=== PATIENT | female | born 1970 | race Two or more races ===

== ENCOUNTER 2019-09-04 06:30 | Inpatient (IN) | payer OTHER ==
[2019-08-31 10:24] VITALS: BMI 40.4
[~2019-09-04 06:30] MED LIST: BUPIVACAINE HCL/PF 0.25% (2.5MG/ML) 10 ML VIAL IJ ONE
[2019-09-04] MEDS ORDERED: MIDAZOLAM HCL 2 MG/2 ML SINGLE DOSE VIAL ONE ×2 (07:09→07:20)
[2019-09-04] MEDS ORDERED: SUCCINYLCHOLINE CHLORIDE 200 MG/10 ML SYRINGE ONE (07:10)
[2019-09-04] MEDS ORDERED: ROCURONIUM BROMIDE 50 MG/5 ML SYRINGE ONE (07:10)
[2019-09-04] MEDS ORDERED: PROPOFOL 20 ML ONE (07:10)
[2019-09-04] MEDS ORDERED: LIDOCAINE HCL/PF 2% SDV 5ML VIAL ONE (07:10)
[2019-09-04] MEDS ORDERED: ROPIVACAINE HCL 0.5% 30ML VIAL ONE (07:20)
[2019-09-04] MEDS ORDERED: BUPIVACAINE HCL 0.25% 125 MG/50 ML VIAL ONE (07:22)
--- NOTE | 2019-09-04 07:40 | HP ---
Admitting History and Physical - Admission Chief Complaint: Morbid obesity History Source: Patient Limitations to Obtaining History: No Limitations - Past Medical History ...LMP: 08/24/19 ...: No - Past Surgical History Additional Past Surgical History: Clinical Rehabilitation Aide surgery Right ankle pinning? - Smoking History Smoking history: Never smoked Have you smoked in the past 12 months: No - Alcohol/Substance Use Hx Alcohol Use: Yes (socially) - Social History Usual Living Arrangement: Yes: With Spouse ADL: Independent Home Medications - Allergies Allergies/Adverse Reactions: Allergies Allergy/AdvReac Type Severity Reaction Status Date / Time No Known Drug Allergies Allergy Verified 09/04/19 06:59 - Home Medications Home Medications: Ambulatory Orders Cetirizine HCl [Zyrtec -] 10 mg PO ASDIR PRN 08/31/19 Family Medical History Family History: Denies Review of Systems - Review of Systems Constitutional: denies: Chills, Fever HENT: reports: No Symptoms Neck: reports: No Symptoms Cardiovascular: reports: No Symptoms Respiratory: reports: No Symptoms Gastrointestinal: reports: No Symptoms Neurological: reports: No Symptoms Pain Intensity: 0 Physical Examination Vital Signs: Vital Signs Temperature 97.8 F 09/04/19 07:00 Pulse Rate 90 09/04/19 07:00 Respiratory Rate 18 09/04/19 07:00 Blood Pressure 130/89 09/04/19 07:00 O2 Sat by Pulse Oximetry (%) 100 09/04/19 07:03 Constitutional: Yes: No Distress, Calm Neck: Yes: WNL Cardiovascular: Yes: Regular Rate and Rhythm Respiratory: Yes: Regular Gastrointestinal: Yes: Soft, Abdomen, Obese Neurological: Yes: Alert, Oriented Problem List - Problems (1) Morbid obesity due to excess calories Code(s): E66.01 - MORBID (SEVERE) OBESITY DUE TO EXCESS CALORIES (2) BMI 40.0-44.9, adult Code(s): Z68.41 - BODY MASS INDEX (BMI) 40.0-44.9, ADULT Assessment/Plan Laparoscopic possible open vertical sleeve gastrectomy possible liver biopsy possible upper endoscopy
[2019-09-04] MEDS ORDERED: PHENYLEPHRINE HCL 10 MG/1 ML SINGLE DOSE VIAL ONE (08:28)
[2019-09-04] MEDS ORDERED: NEOSTIGMINE METHYLSULFATE 0.5 MG/ML - 10 ML MDV ONE (09:04)
[2019-09-04] MEDS ORDERED: GLYCOPYRROLATE 0.2 MG/1 ML VIAL ONE (09:05)
[2019-09-04] MEDS ORDERED: BUPIVACAINE HCL/PF 0.25% (2.5MG/ML) 10 ML VIAL IJ ONE (09:10)
--- NOTE | 2019-09-04 09:23 | OP ---
Operative Note - Note: Operative Date: 09/04/19 Pre-Operative Diagnosis: Morbid obesity Operation: Diagnostic laparoscopy. Laparoscopic vertical sleeve gastrectomy. Laparoscopic wedge liver biopsy Post-Operative Diagnosis: Same as Pre-op Surgeon: Nathan Veronica Health Care Specialist: Carlos García Anesthesia: General Specimens Removed: Greater curvature of stomach. Liver biopsy Estimated Blood Loss (mls): 30 Drains & Tubes with Location: 36 Fr Bougie Operative Report Dictated: Yes
[2019-09-04] MEDS ORDERED: SODIUM CHLORIDE 1,000 ML IV SCH (09:30)
[2019-09-04] MEDS ORDERED: ACETAMINOPHEN 1000 MG/100 ML VIAL (NON FORMULARY) IVPB SCH (10:00)
[2019-09-04] MEDS ORDERED: ONDANSETRON 4 MG/2 ML VIAL IVPUSH SCH (10:00)
[2019-09-04] MEDS ORDERED: METOCLOPRAMIDE HCL INJECTION 10 MG/2 ML VIAL IVPUSH SCH (10:00)
[2019-09-04] MEDS ORDERED: FAMOTIDINE 20 MG/50 ML IVPB 20 MG/50 ML MG IVPB ONE (10:08)
[2019-09-04] MEDS ORDERED: FAMOTIDINE 20 MG PREMIXED IVPB IVPB ONE ×3 (10:17→10:27)
[2019-09-04 10:19] LABS: CALCIUM 8.6 mg/dl (8.5-10); POTASSIUM 3.8 mmol/L (3.5-5.1)
[2019-09-04 10:20] LABS: HEMATOCRIT 38.9 % (32.4-45.2); HEMOGLOBIN 12.4 GM/dl (10.7-15.3); MCH 25.2 pg (25.7-33.7); MCHC 31.9 g/dl (32.0-36.0); MEAN CELL VOLUME 79.1 fl (80-96); MEAN PLT VOLUME 8.7 fl (7.5-11.1); PLATELET COUNT 307 K/MM3 (134-434); RBC 4.92 M/mm3 (3.60-5.2); RDW 14.1 % (11.6-15.6); WHITE BLOOD COUNT 16.7 K/mm3 (4.0-10.8)
--- NOTE | 2019-09-04 10:34 | SPEC ---
DATE OF OPERATION: 09/04/2019 PLACE OF SERVICE: [facility], [address] [place] [address] SURGEON: Nathan Veronica MD PROCESS CONTROL PROGRAMMER: Carlos García MD PREOPERATIVE DIAGNOSES: 1. Morbid obesity. 2. Body mass index of 40.4. POSTOPERATIVE DIAGNOSES: 1. Morbid obesity. 2. Body mass index of 40.4. 3. Hepatomegaly. PROCEDURES: 1. Diagnostic laparoscopy. 2. Laparoscopic vertical sleeve gastrectomy. 3. Laparoscopic wedge liver biopsy. SPECIMEN: 1. Greater curvature of the stomach. 2. Liver biopsy. ESTIMATED BLOOD LOSS: 30 mL. DRAIN: None. ANESTHESIA: GET. BOUGIE SIZE: 36-Samoan. REASON FOR PROCEDURE: This is a 49-year-old female who presented to the office for weight loss options. After describing different options, decided to proceed with a laparoscopic, possible open, vertical sleeve gastrectomy, possible liver biopsy, upper endoscopy. The patient was seen by the respective subspecialties and cleared for surgery. The risks and benefits of the procedure were explained. These included bleeding, infection, hernia, VT, DVT, PE, injury to surrounding structures including the liver, colon, bowel, spleen, esophagus, vessel injury, nerve injury, weight regain, gastric leak, staple line leak, sleeve leak, obstruction, vitamin deficiency, hair loss and as some of the possible complications. The patient understood and signed informed consent. DESCRIPTION OF PROCEDURE: The patient was placed supine on the operating room table. The patient underwent general endotracheal intubation. The arms were brought out at 90 degrees and secured. A footboard was placed and the legs were secured laterally with padding. The abdomen was prepped and draped in the usual sterile fashion. A timeout was performed. An incision was made in the left upper quadrant and a Veress needle inserted. Pneumoperitoneum was established. Subsequently, the Veress needle was removed and a 5-mm trocar was placed under direct visualization with the laparoscope. The laparoscopic camera was then inserted and inspection of the abdominal cavity was performed. An incision was then made in the supraumbilical area and a 15-mm trocar was placed under direct visualization. A 5-mm trocar was then placed in the right upper quadrant and a 5-mm trocar was placed below the left subcostal margin. A stab wound was made in the subxiphoid area and a Alyssa clamp inserted and removed to dilate the tract. A Mahad liver retractor was inserted. The post was secured at the bedside by the nursing staff. The patient was placed in steep reverse Trendelenburg position and the Mahad liver retractor was used to secure the liver towards the anterior abdominal wall. The pylorus was identified and 6 cm proximal to it, the lesser sac was entered using the LigaSure device. All lateral attachments to the greater curvature of the stomach, including the short gastric vessels, were ligated using the LigaSure device toward the gastrosplenic and gastrophrenic ligaments. Once this was done in its entirety, it was confirmed that all tubes within the nasal or oropharyngeal cavity, including a temperature probe were removed by Anesthesia. The bougie was then inserted by Anesthesia. Transection of the stomach was then begun staying adjacent to the bougie but away from the angularis. Transection of the stomach was performed near the portion of the stomach where the lesser sac was entered. Two laparoscopic Endo-JULIA black sarah were used at this location. Laparoscopic Endo JULIA purple staple loads were then used for the remainder of the transection until the greater curvature of the stomach was fully transected. This was done staying close to the bougie. Care was taken to stay away from the angle of His cephalad. The staple line was then inspected. Hemostasis was identified. A leak test was then performed. It was clamped distally to the staple line. Irrigation solution was placed in the left upper quadrant and air was insufflated by Anesthesia into the sleeve. No leaks were identified. No obstruction was identified. This was done through the entirety of the staple line. The stomach was suctioned and the bougie removed fully intact under direct visualization. At this point, the irrigation solution was suctioned and again, hemostasis was noted. A wedge liver biopsy was then performed. The left lobe of the liver was identified. A portion of the edge of the left lobe of the liver was grasped. Using electrocautery, a wedge of the left liver was excised. The specimen was removed and sent off the field. Hemostasis of the wedge liver biopsy site was attained and noted using electrocautery. The 15-mm supraumbilical trocar was then removed and the greater curvature specimen removed from the site using a sponge stick villa. A Eris-Gina device was then used to close the fascia with a 0 Vicryl suture at the site. Again, hemostasis was noted. The Mahad liver retractor was then removed under direct visualization. Pneumoperitoneum was desufflated. Hemostasis was noted at all incision sites and Marcaine was injected at all incision sites. A 3-0 Vicryl suture was used to close the deep subcutaneous tissue at the 15-mm incision site. All incision sites were closed using 4-0 Biosyn. Sterile dressings were applied. The patient tolerated the procedure well and was transferred to the recovery room in stable condition. Sarah [id number]
[2019-09-04 10:41] LABS: ALBUMIN 3.4 g/dl (3.4-5.0); BILIRUBIN,TOTAL 0.3 mg/dl (0.2-1); CREATININE 0.6 mg/dl (0.55-1.3); TOT PROT 6.7 g/dl (6.4-8.2)
[2019-09-04] MEDS: ONDANSETRON 4 MG/2 ML VIAL IVPUSH SCH ×3 (14:20→21:41)
[2019-09-04] MEDS: METOCLOPRAMIDE HCL INJECTION 10 MG/2 ML VIAL IVPUSH SCH ×2 (16:25→21:43)
[2019-09-04] MEDS: ACETAMINOPHEN 1000 MG/100 ML VIAL (NON FORMULARY) IVPB SCH ×2 (16:40→22:53)
[2019-09-04] MEDS: HYDROmorphone HCL CARPU-JECT 1 MG/1 ML DISP.SYRIN IVPB PRN (20:35)
[2019-09-04] MEDS: FAMOTIDINE 20 MG/50 ML IVPB 20 MG/50 ML MG IVPB SCH (21:39)
[2019-09-04] MEDS: ENOXAPARIN NA (PORCINE) 40 MG/0.4 ML DISP.SYRIN SQ SCH (21:43)
[2019-09-05] MEDS: ONDANSETRON 4 MG/2 ML VIAL IVPUSH SCH ×3 (02:33→10:29)
[2019-09-05] MEDS: HYDROmorphone HCL CARPU-JECT 1 MG/1 ML DISP.SYRIN IVPB PRN (02:42)
[2019-09-05] MEDS: ACETAMINOPHEN 1000 MG/100 ML VIAL (NON FORMULARY) IVPB SCH (05:10)
[2019-09-05] MEDS: METOCLOPRAMIDE HCL INJECTION 10 MG/2 ML VIAL IVPUSH SCH ×2 (05:10→10:29)
[2019-09-05 06:12] VITALS: BP 143/84; PULSE 105; TEMP 97.5
--- NOTE | 2019-09-05 07:54 | PN ---
Addendum entered and electronically signed by Jayden Toney PA 09/05/19 11:35: UGI officially read as no extravasation of contrast or gastric outlet obstruction. Start BST1 diet, DC home later today if tolerates. Original Note: Progress Note (short form) - Note Progress Note: BARIATRIC SURGERY No acute events per RN notes. Alert. C/o mild incisional tenderness. Adequate pain control w/ medications ordered. Using her incentive spirometer as directed. OOB and ambulating unassisted. Voiding spontaneously. Denies n/v/f/c, CP, palpitations, SOB or PARSON. Last Vital Signs Temp Pulse Resp BP Pulse Ox 97.5 F L 105 H 18 143/84 95 09/05/19 05:00 09/05/19 05:00 09/05/19 05:00 09/05/19 05:00 09/05/19 05:00 Gen: alert. nad ABD: obese habitus. All surgical ports c/d/i. LE: SCDs bilat <Jayden Toney - Last Filed: 09/05/19 07:54> - Note Progress Note: POD 1 No acute events Vital Signs Period Temp Pulse Resp BP Sys/Busch Pulse Ox Last 24 Hr 97.5 F-99.0 F 103-116 18- 108-143/63-84 95-97 Abd soft CBC, BMP 09/05/19 07:28 09/05/19 07:28 UGI: no leak/obstruction Clears Discharge home <Nathan Veronica - Last Filed: 09/05/19 12:59> Problem List - Problems (1) Morbid obesity due to excess calories Assessment/Plan: POD #1 s/p Laparoscopic vertical sleeve gastrectomy. Wedge liver biopsy. Going for UGI this morning, if negative will begin Bariatric Stage 1 Diet. Cont OOB and ambulate Incentive spirometer Pain management DVT PPX f/u LABS If tolerates diet will DC home later today Code(s): E66.01 - MORBID (SEVERE) OBESITY DUE TO EXCESS CALORIES (2) BMI 40.0-44.9, adult Code(s): Z68.41 - BODY MASS INDEX (BMI) 40.0-44.9, ADULT (3) Hepatomegaly Code(s): R16.0 - HEPATOMEGALY, NOT ELSEWHERE CLASSIFIED <Jayden Toney - Last Filed: 09/05/19 07:54> - Problems (1) Morbid obesity due to excess calories Code(s): E66.01 - MORBID (SEVERE) OBESITY DUE TO EXCESS CALORIES (2) BMI 40.0-44.9, adult Code(s): Z68.41 - BODY MASS INDEX (BMI) 40.0-44.9, ADULT <Nathan Veronica - Last Filed: 09/05/19 12:59>
[2019-09-05 08:14] LABS: HEMATOCRIT 38.1 % (32.4-45.2); HEMOGLOBIN 12.6 GM/dl (10.7-15.3); MCH 25.7 pg (25.7-33.7); MCHC 33.1 g/dl (32.0-36.0); MEAN CELL VOLUME 77.6 fl (80-96); MEAN PLT VOLUME 8.6 fl (7.5-11.1); PLATELET COUNT 303 K/MM3 (134-434); RBC 4.91 M/mm3 (3.60-5.2); RDW 13.9 % (11.6-15.6); WHITE BLOOD COUNT 14.7 K/mm3 (4.0-10.8)
[2019-09-05 09:07] LABS: ALBUMIN 3.2 g/dl (3.4-5.0); BILIRUBIN,TOTAL 0.6 mg/dl (0.2-1); CALCIUM 8.3 mg/dl (8.5-10); CREATININE 0.5 mg/dl (0.55-1.3); POTASSIUM 3.4 mmol/L (3.5-5.1); TOT PROT 6.6 g/dl (6.4-8.2)
[2019-09-05] MEDS: FAMOTIDINE 20 MG/50 ML IVPB 20 MG/50 ML MG IVPB SCH (10:26)
[2019-09-05] MEDS: ENOXAPARIN NA (PORCINE) 40 MG/0.4 ML DISP.SYRIN SQ SCH (10:29)
[2019-09-05] MEDS ORDERED: ONDANSETRON *ODT* 4 MG TABLET SL ONE (14:30)
--- NOTE | 2019-09-06 15:10 | PATH ---
Surgical Pathology Report Patient Name: JIM HINDS Med. Rec. #: [id number] /Age/Gender: 1970 (Age: 49) / F Account: [id number] Location: [facility] MED-[facility]UR[facility] Taken: 09/04/2019 Received: 09/04/2019 Reported: 09/06/2019 Physicians: Nathan Veronica M.D. Specimen(s) Received A: GREATER CURVATURE STOMACH B: LIVER BIOPSY Clinical History Morbid obesity Final Diagnosis A. GREATER CURVATURE OF STOMACH, LAPAROSCOPIC GASTRIC SLEEVE EXCISION: PORTION OF STOMACH SHOWING MODERATE CHRONIC GASTRITIS. IMMUNOSTAIN SHOWS NUMEROUS H.PYLORI ORGANISMS. B. LIVER, BIOPSY: LIVER SHOWING MILD STEATOSIS (10-15%). TRICHROME STAIN SHOWS NO APPRECIABLE INCREASE IN FIBROSIS. IRON STAIN SHOWS NO INCREASE IN IRON DEPOSITS. Electronically Signed Angelia Orozco M.D. Gross Description A. Received in formalin, labeled "greater curvature stomach," is a 121 gram, 17.5 x 3.8 x 3.0 cm. portion of stomach with a stapled margin of resection. The serosa is dickens-farnsworth with minimal attached fat. The mucosa is dickens-pink with normal folds. No mucosal masses are identified. Varnishing Unit Tool Setter sections are submitted in one cassette. B. Received in formalin labeled "liver biopsy," is a 3.2 x 1.0 x 0.6 cm dickens, irregular portion of soft tissue, consistent with a liver biopsy. The specimen is bisected and entirely submitted in one cassette. /09/04/201909/04/2019
== END 2019-09-05 13:49 | disposition home or self-care (01) | DRG 403 ==
LOC: FM/S 06:30
PROVIDERS: ADMIT Surgery; ATTEND Surgery
PROC: 0DB60Z3 Excision of Stomach, Open Approach, Vertical (ICD-10-PCS; principal; 2019-09-04 08:28)
PROC: 0FB20ZX Excision of Left Lobe Liver, Open Approach, Diagnostic (ICD-10-PCS; 2019-09-04 08:28)
DX: E66.01 Morbid (severe) obesity due to excess calories (principal); Z68.41 Body mass index [BMI] 40.0-44.9, adult; R16.0 Hepatomegaly, not elsewhere classified
CPT/HCPCS: 36415; 74241-TC-FY; 80053; 84703; 85027; 87389; 88305-TC; J0131; J7030; Q9967